=== PATIENT | female | born 1980 | race Caucasian/White ===

== ENCOUNTER 2021-07-18 21:12 | Emergency (ER) | payer OTHER ==
[~2021-07-18] VITALS: Ht 167.6 cm; Wt 81.6 kg
[~2021-07-18 21:12] MED LIST: CEFADROXIL500 MG PO; MOTRIN800 MG PO
[2021-07-18] MEDS ORDERED: ATORVASTATIN CA20 MG (21:28)
[2021-07-18] MEDS ORDERED: CLARITIN10 M1 PO (22:54)
[2021-07-18] MEDS ORDERED: TUSNEL LIQUID178 ML PO (22:54)
[2021-07-18] MEDS ORDERED: DOLOGEN CAPLET1 EACH PO (22:54)
== END 2021-07-19 00:33 | disposition home or self-care (01) ==
LOC: ER 21:12
DX: U07.1 COVID-19 (principal)

== ENCOUNTER 2021-07-20 09:00 | Outpatient (CLI) | payer OTHER ==
[~2021-07-20 09:00] MED LIST changes: +ATORVASTATIN CA20 MG; +CLARITIN10 M1 PO; +DOLOGEN CAPLET1 EACH PO; +TUSNEL LIQUID178 ML PO
== END 2021-07-20 09:40 | disposition home or self-care (01) ==
LOC: ASH CLINIC 09:00
PROVIDERS: ATTEND General Practice
DX: U07.1 COVID-19 (principal)

== ENCOUNTER 2022-02-07 21:22 | Emergency (ER) | payer OTHER ==
[~2022-02-07] VITALS: Ht 167.6 cm; Wt 83.0 kg
== END 2022-02-07 23:55 | disposition home or self-care (01) ==
LOC: ER 21:22
DX: A49.3 Mycoplasma infection, unspecified site (principal)

== ENCOUNTER 2022-07-22 21:13 | Emergency (ER) | payer OTHER ==
[~2022-07-22] VITALS: Ht 167.6 cm; Wt 83.5 kg
== END 2022-07-23 00:11 | disposition home or self-care (01) ==
LOC: ER 21:13
DX: J06.9 Acute upper respiratory infection, unspecified (principal); Z20.822 Contact with and (suspected) exposure to COVID-19